=== PATIENT | female | born 1950 | race Caucasian/White ===

== ENCOUNTER 2021-05-13 11:40 | Outpatient (REF) | payer MEDICARE, OTHER, SELFPAY ==
[2021-05-14 08:32] LABS: Lyme Abs Screen <0.90 index
== END 2021-05-13 11:41 | disposition home or self-care (01) ==
LOC: HO.HMGCLDS 11:40
PROVIDERS: PCP Family Medicine; Visit Provider Hospitalist
DX: T14.8XXA Other injury of unspecified body region, initial encounter (principal); W57.XXXA Bitten or stung by nonvenomous insect and other nonvenomous arthropods, initial encounter
CPT/HCPCS: 36415; 86617; 86618

== ENCOUNTER 2025-09-16 09:08 | Outpatient (AMB) | payer MEDICARE, SELFPAY ==
[2025-09-16 09:18] VITALS: BP 110/70; PULSE 73; TEMP 36.7; O2SAT 96; BMI 21.6
--- NOTE | 2025-09-16 09:18 | AM.OFFWIN_ITS ---
Intake Vital Signs 09/16/25 09:18 Height 5 ft 3 in Weight 122 lb BMI 21.6 BP 110/70 Blood Pressure Location Lt brachial Position Sitting Pulse 73 Pulse Source Pulse Oximeter Temp 98.1 F Temp Source Oral Pulse Oximetry (%) 96 Oxygen Delivery Method Room Air Intake Visit Reasons: [employer] Tick bite, yesterday Intake Note: pt is here for tick bite, left knee/leg, noticed it yesterday Allergies gluten (GLUTEN) Allergy (Unknown, Verified 09/16/25 09:19) GI ISSUES Sulfa (Sulfonamide Antibiotics) (SULFA (SULFONAMIDE ANTIBIOTICS)) Allergy (Unknown, Verified 09/16/25 09:19) HALLUCINATIONS cat/dogs Allergy (Mild, Uncoded 09/16/25 09:19) Unknown gluton Allergy (Mild, Uncoded 09/16/25 09:19) Unknown sulfa Allergy (Mild, Uncoded 09/16/25 09:19) Unknown Do you need a note to return to daycare/school/sports/work: No HPI HPI Comments History of Present Illness Details History - The patient is a 75-year-old female pr esenting with concerns about a tick bite. - She noticed an itchy spot on her left knee last night and found a black dot, which she removed with hydrogen peroxide. - The patient frequently gardens, which may have exposed her to ticks, but reports no new joint pain, fevers, or chills. - She has a history of knee joint pain d ue to a knee replacement. - She has no rashes, discharge or bleedi ng. Physical Exam General: Cooperative, healthy appearing, comfortable, no acute distress and well developed Orientation: Patient oriented x3 Limitations: No limitations Respiratory: Normal respiratory effort and able to speak in complete sentences. Cardiac: RRR. No m/r/g noted. Skin: [place] spot on left knee, tiny, non-tender. No discharge noted. No induration noted. Neuro: Sensation intact. Patient was informed and verbally consented to the use of an ambient scribe for clinic note documentation during this visit. Review of Systems Const All systems reviewed & are unremarkable except as noted in HPI and below Physical Exam Vital Signs: Last Vital Signs Temp 98.1 F 09/16/25 09:18 Pulse 73 09/16/25 09:18 BP 110/70 09/16/25 09:18 Pulse Ox 96 09/16/25 09:18 Oxygen Delivery Method Room Air 09/16/25 09:18 BMI result Body Mass Index 21.6 Assessment & Plan Assessment & Plan (1) Tick bite: Code(s): W57.XXXA - Bitten or stung by nonvenomous insect and other nonvenomous arthr opods, initial encounter Qualifiers: Encounter type: initial encounter Qualified Code(s): W57.XXXA - Bitten or stung by nonvenomous insect and other nonvenomous arthropods, initial encounter Plan Most likely a tick bite Plan - Administer prophylactic treatment to prevent tick-borne diseases. - keep area clean and dry - watch for signs of infection such as redness, warmth, discharge, fever, etc - follow up with PCP Medications: New doxycycline hyclate 100 mg PO BID 14 tabs 0RF Coding Level of Care Code Est Pt Level 3 (93249) Diagnoses Tick bite, initial encounter W57.XXXA Encounter type: initial encounter
--- OUTSIDE RECORDS SUMMARY | 2025-09-16 10:21 | XMS_ITS | Clinical Summary ---
Author Organization [facility] Address [address] [place] [id number] Phone Care Team Providers Care Manager Materials Management Name Role Phone Eric Frey MD Primary Care Provider + Allergies Active Allergy Reactions Criticality Noted Date Comments Sulfa (Sulfonamide Antibiotics) 10/28 Medications multivitamins capsule Daily, 0 Refills, Maintenance, 07/21/22 9:37:00 EDT, Partial fill upon patient request if the prescription is for a schedule II opioid drug. 2 Active citalopram (CELEXA) 10 MG tablet 2 Active estradioL (ESTRACE) 0.01 % (0.1 mg/gram) vaginal cream 2 Active simvastatin (ZOCOR) 10 MG tablet 2 Active cholecalciferol (VITAMIN D3) 25 MCG (1,000 unit) tablet Take 1,000 Units by mouth daily. Active Active Problems Problem Noted Date Diagnosed Date Primary localized osteoarthrosis of right lower leg 11/15/2022 Social History Tobacco Use Types Packs/Day Years Used Date Smoking Tobacco: Never Smokeless Tobacco: Never Tobacco Cessation:Counseling Given: Not Answered Education Answer Date Recorded Are you interested in more education? Not on eloy e 03/26/2023 Are you concerned about learning? Not on file 03/26/2023 No 03/26/2023 No 03/26/2023 Digital Access Answer Date Recorded No 04/24/2023 No 04/24/2023 No 04/24/2023 Reliable internet access at home? Not on file 04/24/2023 Device with a working camera? Not on file Comments Unknown Sex and Gender Information Value Date Recorded Sex Assigned at Not on file Legal Sex Female 11:25 AM EST Gender Identity Not on file Sexual Orientation Not on file Last Filed Vital Signs Vital Sign Reading Time Taken Comments Blood Pressure - - Pulse - - Temperature - - Respiratory Rate - - Oxygen Saturation - - Inhaled Oxygen Concentration - - Weight 55.3 kg (122 lb) 11/15/2022 3:33 PM EST Height 162.6 cm (5' 4 ) 11/15/2022 3:33 PM EST Body Mass Index 20.94 11/15/2022 3:33 PM EST Plan of Treatment Health Maintenance Due Date Last Done Comments LIPID PANEL 1951 DEPRESSION SCREENING 1963 HEPATITIS C SCREENING 1969 MAMMOGRAM 1991 COLOGUARD 1996 COLONOSCOPY 1996 COLORECTAL CANCER SCREENING 1996 FIT TEST 1996 FOBT 1996 SIGMOIDOSCOPY 1996 VIRTUAL COLONOSCOPY 1996 ZOSTER VACCINES (2 of 3) 11/12/2014 09/17/2014, 07/29 OSTEOPOROSIS SCREENING INITIAL (ONE-TIME) 2016 INFLUENZA VACCINE (#1) 2025 2, 11/06/2020, 11/13/2019, Additional history exists COVID-19 VACCINE (2024- season) 2025 09/04/2021, 01/22/2021, 01/01/2021 RSV VACCINE (1 - 1-dose 75+ series) 2026 Adult Td,Tdap Booster 09/05/2028 09/05/2018 PNEUMOCOCCAL VACCINES (50+ years) Completed 08/31/2017, 08/20/2016 SMOKING STATUS SCREENING (Once After 26 Yrs) Completed 11/15/2022 HEPATITIS A VACCINES Aged Out No long er eligible based on patient's age to complete this topic HIB VACCINES Aged Out No longer eligi ble based on patient's age to complete this topic MENINGOCOCCAL VACCINES (ACWY) Aged Out No longer eligible based on patient's age to complete this topic MENINGOCOCCAL VACCINES (B) Aged Out N o longer eligible based on patient's age to complete this topic Medical Devices Not on file Insurance [facility] MEDICARE REPLACEMENT MEDICARE PART A & B [facility] MEDICARE REPLACEMENT MEDICARE PART A & B MEDICARE PART A & B [facility] MEDICARE REPLACEMENT MEDICARE PART A & B MEDICARE REPLACEMENT MEDICARE PART A & [place] [address] [place] [address] MEDICARE REPLACEMENT MEDICARE PART A & B Care Teams Manager Materials Management Relationship Specialty Start Date End Date Eric Frey MD [address] [place] [phone] PCP - General Family Medicine 10/15/22 Additional Source Comments The information contained in this document represents components of the legal health record. It is not the complete legal health record.[facility]
== END 2025-09-16 10:14 | disposition home or self-care (01) ==
PROVIDERS: PCP Family Medicine; Visit Provider Physician Assistant Medical
DX: T63.481A Toxic effect of venom of other arthropod, accidental (unintentional), initial encounter (principal)

== ENCOUNTER → 2025-09-16 09:08 | Outpatient (BNVA) | payer MEDICARE, SELFPAY | PROVIDERS: PCP Family Medicine; Visit Provider Physician Assistant Medical | DX: T14.8XXA Other injury of unspecified body region, initial encounter (principal); W57.XXXA Bitten or stung by nonvenomous insect and other nonvenomous arthropods, initial encounter | CPT/HCPCS: 99212 ==